=== PATIENT | male | born 1955 | race Caucasian/White ===

== ENCOUNTER 2018-03-11 14:42 | Emergency (ER) | payer MEDICAID ==
--- NOTE | 2018-03-11 15:12 | EDM.PDOC ---
ED HPI GENERAL MEDICAL PROBLEM - General Chief Complaint: Eye Problems Stated Complaint: shingles Time Seen by Provider: 03/11/18 15:00 Source of Information: Reports: Patient History Limitations: Reports: No Limitations - History of Present Illness INITIAL COMMENTS - FREE TEXT/NARRATIVE: Presents reporting left eye clouded vision. The patient states about 7-8 days ago he noticed a rash on his left for head he did see a provider about 3 or 4 days later who diagnosed him with shingles and gave him a prescription of acyclovir. He has been taking the medication but in the interim has developed some cloudy vision in his left eye along with pain and redness. left eye Pain Score (Numeric/FACES): 5 - Related Data Allergies Allergy/AdvReac Type Severity Reaction Status Date / Time No Known Allergies Allergy Verified 03/11/18 14:55 Home Meds: Home Meds OLANZapine [Olanzapine] 10 mg PO DAILY 03/11/18 [History] traZODone HCl [Trazodone HCl] 150 mg PO DAILY 03/11/18 [History] Past Medical History HEENT History: Reports: None Cardiovascular History: Reports: None Respiratory History: Reports: None Gastrointestinal History: Reports: None Genitourinary History: Reports: None Musculoskeletal History: Reports: None Neurological History: Reports: None Psychiatric History: Reports: Mood Swings Endocrine/Metabolic History: Reports: None Hematologic History: Reports: None Immunologic History: Reports: None Oncologic (Cancer) History: Reports: None Dermatologic History: Reports: None - Infectious Disease History Infectious Disease History: Reports: Chicken Pox, Shingles - Past Surgical History Head Surgeries/Procedures: Reports: None HEENT Surgical History: Reports: None Cardiovascular Surgical History: Reports: None Respiratory Surgical History: Reports: None GI Surgical History: Reports: None Male Surgical History: Reports: None Endocrine Surgical History: Reports: None Neurological Surgical History: Reports: None Musculoskeletal Surgical History: Reports: None Oncologic Surgical History: Reports: None Dermatological Surgical History: Reports: None Social & Family History - Family History Family Medical History: Noncontributory - Tobacco Use Smoking Status *Q: Current Every Day Smoker Years of Tobacco use: 10 Packs/Tins Daily: 0.5 - Caffeine Use Caffeine Use: Reports: None - Recreational Drug Use Recreational Drug Use: No ED ROS GENERAL - Review of Systems Review Of Systems: ROS reveals no pertinent complaints other than HPI. ED EXAM GENERAL W FULL EYE - Physical Exam Exam: See Below Exam Limited By: No Limitations General Appearance: Alert, No Apparent Distress Eye Exam: Left Eye: Conjunctival Injection, Vision Changes Visual Acuity (R) 20/: 25 Visual Acuity (L) 20/: 70 Eyelids: Bilateral: Normal Appearance Conjunctiva & Sclera: Right: Normal Appearance, Left: Injected Extraocular Movements: Bilateral: Intact Pupils: Normal Accommodation Pupillary Size: Bilateral: 4 mm Pupillary Reaction: Bilateral: Brisk Anterior Chamber: Bilateral: Normal Appearance Ears: Normal External Exam Nose: Normal Inspection Throat/Mouth: Normal Inspection Head: Atraumatic, Normocephalic Neck: Normal Inspection Respiratory/Chest: No Respiratory Distress, Lungs Clear, Normal Breath Sounds Cardiovascular: Regular Rate, Rhythm Skin Exam: Other (Vesicular rash left for head) Course - Vital Signs Last Recorded V/S: Last Vital Signs Temp 36.2 C 03/11/18 14:57 Pulse 84 03/11/18 14:57 Resp 18 03/11/18 14:57 BP 134/74 03/11/18 14:57 Pulse Ox 96 03/11/18 14:57 Departure - Departure Time of Disposition: 15:14 Disposition: DC/Tfer to Other 70 Clinical Impression: Shingles - Discharge Information *PRESCRIPTION DRUG MONITORING PROGRAM REVIEWED*: Not Applicable *COPY OF PRESCRIPTION DRUG MONITORING REPORT IN PATIENT MICHEAL: Not Applicable Referrals: Boaz Calixto MD [Consulting Physician] - Additional Instructions: 1. Report directly to [facility]. Dr. Calixto will see you right away.
== END 2018-03-11 15:23 | disposition other institution (70) ==
LOC: MW.ED 14:42
DX: B02.9 Zoster without complications (principal); F17.210 Nicotine dependence, cigarettes, uncomplicated; Z79.899 Other long term (current) drug therapy
CPT/HCPCS: 99283

== ENCOUNTER 2020-01-23 16:32 | Emergency (ER) | payer MEDICAID ==
--- NOTE | 2020-01-23 16:39 | EDM.PDOC ---
ED [facility] GENERAL MEDICAL PROBLEM - General Chief Complaint: Eye Problems Stated Complaint: EYE PROBLEM Time Seen by Provider: 01/23/20 16:33 Source of Information: Reports: Patient History Limitations: Reports: No Limitations - History of Present Illness INITIAL COMMENTS - FREE TEXT/NARRATIVE: HISTORY AND PHYSICAL: History of present illness: Patient is a 64-year-old male who presents to the ED today with concern of right eye blurriness that has been ongoing for the past 3 to 4 days. Patient states that the central vision of his right eye is blurry/grayish and is clear above and below this area. 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 Patient states that the blurriness he have in his left eye is similar to the blurriness he is now having in his right. Patient states when he had shingles of his left eye he also had a rash above his left eye and is not having a rash today. Patient denies any pain associated with his right eye blurriness. Patient denies any trauma or injury. Patient denies any contact use or glasses. Patient states he does see Dr. Calixto for his left eye concerns in the past. Patient denies fever, chills, chest pain, shortness of breath, or cough. Denies headache, neck stiff ness, syncope, or near syncope. Denies nausea, vomiting, abdominal pain, diarrhea, constipation, or dysuria. Has not noted any blood in urine or stool. Patient has been eating and drinking appropriately. Review of systems: As per history of present illness and below otherwise all systems reviewed and negative. Past medical history: As per history of present illness and as reviewed below otherwise noncontributory. Surgical history: As per history of present illness and as reviewed below otherwise noncontributory. Social history: See social history for further information Family history: As per history of present illness and as reviewed below otherwise noncontributory. Physical exam: General: Patient is alert, oriented, and in no acute distress. Patient sitting comfortably on exam table. HEENT: Visual acuity intact. Tonopen pressure of right eye 19. Tonopen pressure of left eye 18. EOMS intact without pain or difficulty. Fluroscene stain performed without evidence of corneal abrasion/ulceration. Bilateral upper and lower lids everted without sign of foreign body. Negative for corneal opacity, hyphema, or hypopyon. Otherwise, atraumatic, normocephalic, pupils equal and reactive bilaterally, negative for conjunctival pallor or scleral icterus, mucous membranes moist, TMs normal bilaterally, throat clear, neck supple, nontender, trachea midline. No drooling or trismus noted. No meningeal signs. No hot potato voice noted. Lungs: Clear to auscultation, breath sounds equal bilaterally, chest nontender. Heart: S1S2, regular rate and rhythm without overt murmur Abdomen: Soft, nondistended, nontender. Negative for masses or hepatosplenomegaly. Negative for costovertebral tenderness. Pelvis: Stable nontender. Genitourinary: Deferred. Rectal: Deferred. Skin: Intact, warm, dry. No lesions or rashes noted. Extremities: Atraumatic, negative for cords or calf pain. Neurovascular unremarkable. Neuro: Awake, alert, oriented. Cranial nerves II through XII unremarkable. Cerebellum unremarkable. Motor and sensory unremarkable throughout. Exam nonfocal. Notes: I did call and speak to the bundler [employer] on-call, Dr. Calixto, and thoroughly discussed patient's case. He states he is aware of patient's left eye issues as he saw patient in his clinic. He states for patient to be seen on Saturday in his clinic. Patient is to call on Saturday morning to establish an appointment time. Signs and symptoms that would prompt return to ED thoroughly discussed with luz barcenas. Discussed importance for follow-up with Dr. Calixto Voices understanding and is agreeable to plan of care. Denies any further questions or concerns at this time. Diagnostics: Erlin-Pen, fluorescein Wood's lamp Therapeutics: Tetracaine ophthalmic Prescription: None Impression: Right eye blurriness Plan: 1. Follow up with Dr. Calixto on Saturday as discussed. Call his clinic to establish an appointment time. 2. Return to the ED as needed and as discussed. Definitive disposition and diagnosis as appropriate pending reevaluation and review of above. - Related Data Allergies Allergy/AdvReac Type Severity Reaction Status Date / Time No Known Allergies Allergy Verified 01/23/20 16:46 Home Meds: Home Meds OLANZapine [Olanzapine] 10 mg PO DAILY 03/11/18 [History] Past Medical History HEENT History: Reports: None Cardiovascular History: Reports: None Respiratory History: Reports: None Gastrointestinal History: Reports: None Genitourinary History: Reports: None Musculoskeletal History: Reports: None Neurological History: Reports: None Psychiatric History: Reports: Mood Swings Endocrine/Metabolic History: Reports: None Hematologic History: Reports: None Immunologic History: Reports: None Oncologic (Cancer) History: Reports: None Dermatologic History: Reports: None - Infectious Disease History Infectious Disease History: Reports: Chicken Pox, Shingles - Past Surgical History Head Surgeries/Procedures: Reports: None HEENT Surgical History: Reports: None Cardiovascular Surgical History: Reports: None Respiratory Surgical History: Reports: None GI Surgical History: Reports: None Male Surgical History: Reports: None Endocrine Surgical History: Reports: None Neurological Surgical History: Reports: None Musculoskeletal Surgical History: Reports: None Oncologic Surgical History: Reports: None Dermatological Surgical History: Reports: None Social & Family History - Family History Family Medical History: No Pertinent Family History - Caffeine Use Caffeine Use: Reports: None ED ROS GENERAL - Review of Systems Review Of Systems: Comprehensive ROS is negative, except as noted in HPI. ED EXAM GENERAL W FULL EYE - Physical Exam Exam: See Below (see dictation) Course - Vital Signs Last Recorded V/S: Last Vital Signs Temp 96.8 F L 01/23/20 16:43 Pulse 77 01/23/20 16:43 Resp 16 01/23/20 16:43 BP 150/90 H 01/23/20 16:43 Pulse Ox 97 01/23/20 16:43 - Orders/Labs/Meds Meds: Medications Discontinued Medications Generic Name Dose Route Start Last Admin Trade Name Freq PRN Reason Stop Dose Admin Sodium Chloride 1,000 mls @ 150 mls/hr 01/23/20 17:00 Normal Saline IV ASDIRECTED MELINA Tetracaine HCl 2 ml 01/23/20 16:54 Tetracaine 0.5% Steri-Unit Dahlia EYEBOTH 01/23/20 16:55 ASDIRECTED ONE Departure - Departure Time of Disposition: 17:30 Disposition: Home, Self-Care 01 Clinical Impression: Blurry vision, left eye - Discharge Information Referrals: PCP,None [Primary Care Provider] - Forms: ED Department Discharge Additional Instructions: The following information is given to patients seen in the emergency department who are being discharged to home. This information is to outline your options for follow-up care. We provide all patients seen in our emergency department with a follow-up referral. The need for follow-up, as well as the timing and circumstances, are variable depending upon the specifics of your emergency department visit. If you don't have a primary care physician on staff, we will provide you with a referral. We always advise you to contact your personal physician following an emergency department visit to inform them of the circumstance of the visit and for follow-up with them and/or the need for any referrals to a consulting specialist. The emergency department will also refer you to a specialist when appropriate. This referral assures that you have the opportunity for follow-up care with a specialist. All of these measure are taken in an effort to provide you with optimal care, which includes your follow-up. Under all circumstances we always encourage you to contact your private physician who remains a resource for coordinating your care. When calling for follow-up care, please make the office aware that this follow-up is from your recent emergency room visit. If for any reason you are refused follow-up, please contact the [facility] Emergency Department at and asked to speak to the emergency department charge nurse. [facility] Primary Care / Ophthalmology, Dr. Calixto [address] [place] [address] [id number] 1. Follow up with Dr. Calixto on Saturday as discussed. Call his clinic to establish an appointment time. 2. Return to the ED as needed and as discussed. Sepsis Event Note (ED) - Focused Exam Vital Signs: Vital Signs Temp Pulse Resp BP Pulse Ox 01/23/20 16:43 96.8 F L 77 16 150/90 H 97
[2020-01-23] MEDS ORDERED: Tetracaine HCl/PF 0.5% 4 ML Bottle EYEBOTH ONE (16:54)
[2020-01-23] MEDS ORDERED: Sodium Chloride 0.9% 1,000 ML IV SCH (17:00)
== END 2020-01-23 17:53 | disposition home or self-care (01) ==
LOC: MW.ED 16:32
DX: H53.8 Other visual disturbances (principal)
CPT/HCPCS: 99283

== ENCOUNTER 2021-07-25 09:02 | Day surgery (SDC) | payer MEDICAID ==
[~2021-07-25 09:02] MED LIST: Lactated Ringers 1,000 ML IV SCH; Sodium Chloride 0.9% 10 ML Syringe FLUSH PRN; Sodium Chloride 0.9% 2.5 ML Syringe FLUSH PRN; Sodium Chloride 0.9% 20 ML SDV IV PRN; propofoL 50 ML ONE
[2021-07-25] MEDS ORDERED: Propofol 200 MG/20 ML SDV ONE ×2 (10:55→11:11)
== END 2021-07-25 12:49 | disposition home or self-care (01) ==
LOC: MW.SDS 09:02
PROVIDERS: ATTEND Surgery
DX: Z12.11 Encounter for screening for malignant neoplasm of colon (principal); D12.3 Benign neoplasm of transverse colon; K64.1 Second degree hemorrhoids; K57.30 Diverticulosis of large intestine without perforation or abscess without bleeding; G47.00 Insomnia, unspecified; K42.9 Umbilical hernia without obstruction or gangrene; K40.30 Unilateral inguinal hernia, with obstruction, without gangrene, not specified as recurrent; F17.210 Nicotine dependence, cigarettes, uncomplicated; Z79.899 Other long term (current) drug therapy; Z80.0 Family history of malignant neoplasm of digestive organs
CPT/HCPCS: 45380; J2704; J7120; 00812

== ENCOUNTER 2021-10-17 11:59 | Day surgery (SDC) | payer MEDICAID ==
[~2021-10-17 11:59] MED LIST changes: +Albuterol 0.083% 2.5 MG/3 ML Neb Soln NEB PRN; +Bupivacaine 0.5% 30 ML SDV ONE; +HYDROmorphone 1 MG/ML Syringe IVPUSH PRN; +Metoclopramide 10 MG/2 ML SDV IVPUSH PRN; +Morphine 4 MG/ML VIAL IVPUSH PRN; +Naloxone 0.4 MG/ML SDV IVPUSH PRN; +Ondansetron 4 MG/2 ML SDV IVPUSH PRN; +ceFAZolin 2 GM in Premix Bag 1 BAG IV ONE; +fentaNYL 50 MCG/ML SDV IVPUSH PRN; -propofoL 50 ML ONE
[2021-10-17] MEDS ORDERED: Bupivacaine 0.5% 30 ML SDV ONE (12:21)
[2021-10-17] MEDS ORDERED: Propofol 200 MG/20 ML SDV ONE (12:37)
[2021-10-17] MEDS ORDERED: fentaNYL 100 MCG/2 ML SDV ONE (12:37)
[2021-10-17] MEDS ORDERED: Ketamine 500 mg/10 ML MDV ONE (12:37)
[2021-10-17] MEDS ORDERED: Ropivacaine 0.5% 5 MG/ML 30 ML SDV ONE (12:56)
[2021-10-17] MEDS ORDERED: Lidocaine 2% 5 ML SDV ONE (13:15)
[2021-10-17] MEDS ORDERED: Rocuronium Bromide 50 MG/5 ML Syringe ONE (13:15)
[2021-10-17] MEDS ORDERED: ceFAZolin 1 GM Vial ONE (14:31)
[2021-10-17] MEDS ORDERED: Esmolol 100 MG/10 ML SDV ONE (14:35)
[2021-10-17] MEDS ORDERED: Dexamethasone 4 MG/ML 5 ML MDV ONE (14:38)
[2021-10-17] MEDS ORDERED: Ondansetron 4 MG/2 ML SDV ONE (15:07)
[2021-10-17] MEDS ORDERED: Ketorolac 30 MG/ML SDV ONE (15:07)
[2021-10-17] MEDS ORDERED: Sugammadex Sodium 200 MG/2 ML VIAL ONE (15:07)
== END 2021-10-17 17:05 | disposition home or self-care (01) ==
LOC: MW.SDS 11:59
PROVIDERS: ATTEND Surgery
DX: K40.90 Unilateral inguinal hernia, without obstruction or gangrene, not specified as recurrent (principal); K42.9 Umbilical hernia without obstruction or gangrene; G47.00 Insomnia, unspecified; F17.210 Nicotine dependence, cigarettes, uncomplicated; Z79.899 Other long term (current) drug therapy; Z98.890 Other specified postprocedural states
CPT/HCPCS: 49505; 49585; J0131; J0690; J1100; J1885; J2405; J2704; J2795; J3010; J3490; J7120; C1781